=== PATIENT | male | born 1950 | race Caucasian/White ===

== ENCOUNTER 2020-05-22 17:09 | Emergency (ER) | payer MEDICARE, BC ==
--- NOTE | 2020-05-22 18:57 | EDM.PDOC ---
ED HPI GENERAL MEDICAL PROBLEM - General Chief Complaint: Respiratory Problem Stated Complaint: ANGELA SERRATO HAS BEEN EXPOSED Time Seen by Provider: 05/22/20 17:31 Source of Information: Reports: Patient History Limitations: Reports: No Limitations - History of Present Illness INITIAL COMMENTS - FREE TEXT/NARRATIVE: The patient presents with a slight cough and shortness of breath. The patient had a friend over on Monday and the next day his friend had symptoms and tested positive on Monday. Yesterday the patient developed a headache, slight cough, and shortness of breath. He has no other symptoms such as fever, chills, congestion, runny nose, abdominal pain, chest pain, nausea, vomiting or diarrhea. he has a history of Parkinson's disease. He has no history of asthma or COPD. He does not smoke. His is on oxygen at home and she has lung issues. Onset: Gradual Duration: Day(s): Severity: Mild Improves with: Reports: None Worsens with: Reports: None Associated Symptoms: Reports: Cough, Headaches, Shortness of Breath. Denies: Confusion, Chest Pain, Fever/Chills, Nausea/Vomiting Back Pain Score (Numeric/FACES): 2 - Related Data Allergies Allergy/AdvReac Type Severity Reaction Status Date / Time No Known Allergies Allergy Verified 05/22/20 17:33 Home Meds: Home Meds Carbidopa/Levodopa [Carbidopa-Levodopa 10-100] 1 tab PO ASDIRECTED 05/22/20 [History] Levothyroxine [Synthroid] 0 mcg PO DAILY 05/22/20 [History] Past Medical History Musculoskeletal History: Reports: Other (See Below) Other Musculoskeletal History: roator cuff right arm surgery Neurological History: Reports: Parkinson's Endocrine/Metabolic History: Reports: Hypothyroidism Social & Family History - Tobacco Use Tobacco Use Status *Q: Never Tobacco User - Caffeine Use Caffeine Use: Reports: Soda - Recreational Drug Use Recreational Drug Use: No ED ROS GENERAL - Review of Systems Review Of Systems: See Below Constitutional: Reports: No Symptoms HEENT: Reports: No Symptoms Respiratory: Reports: Shortness of Breath, Cough Cardiovascular: Reports: No Symptoms Endocrine: Reports: No Symptoms GI/Abdominal: Reports: No Symptoms : Reports: No Symptoms Musculoskeletal: Reports: No Symptoms ED EXAM, GENERAL - Physical Exam Exam: See Below Exam Limited By: No Limitations General Appearance: Alert, No Apparent Distress Ears: Normal External Exam Nose: Normal Inspection Head: Atraumatic, Normocephalic Neck: Normal Inspection Respiratory/Chest: No Respiratory Distress, Lungs Clear, Normal Breath Sounds Cardiovascular: Regular Rate, Rhythm, No Edema, No Murmur GI/Abdominal: Soft, Non-Tender, No Organomegaly, No Mass Back Exam: Normal Inspection Extremities: Normal Inspection Neurological: Alert, Oriented, No Motor/Sensory Deficits Course - Vital Signs Last Recorded V/S: Last Vital Signs Temp 99.8 F 05/22/20 17:39 Pulse 77 05/22/20 17:39 Resp 20 05/22/20 17:39 BP 147/85 H 05/22/20 17:39 Pulse Ox 95 05/22/20 17:39 - Orders/Labs/Meds Orders: Active Orders 24 hr Category Date Time Status CXR [Chest 1V Frontal] [CR] Stat Exams 05/22/20 18:04 Taken Labs: Laboratory Tests 05/22/20 Range/Units 18:16 SARS-CoV-2 RNA (RY) Positive H (NEGATIVE) - Re-Assessments/Exams Free Text/Narrative Re-Assessment/Exam: 05/22/20 19:00 I ordered a CXR and COVID 19 test. His CXR looks good. I am awaiting his COVID 19 test. 05/22/20 19:24 He is COVID positive. I will discharge him home. Departure - Departure Time of Disposition: 19:25 Disposition: Home, Self-Care 01 Condition: Good Clinical Impression: COVID-19 - Discharge Information *PRESCRIPTION DRUG MONITORING PROGRAM REVIEWED*: Not Applicable *COPY OF PRESCRIPTION DRUG MONITORING REPORT IN PATIENT ANISA: Not Applicable Referrals: PCP,Not In Area [Primary Care Provider] - Forms: ED Department Discharge Additional Instructions: Quarantine yourself for 14 days. Try to grain picker a pulse oximeter to check your blood oxygen level. You can get one from the pharmacy or [facility]. If your oxygen level is below 90 consistently please return. Please return if you feel worse. You should have your checked on Monday. Sepsis Event Note (ED) - Evaluation Sepsis Screening Result: No Definite Risk - Focused Exam Vital Signs: Vital Signs Temp Pulse Resp BP Pulse Ox 05/22/20 17:39 99.8 F 77 20 147/85 H 95 - My Orders Last 24 Hours: My Active Orders 05/22/20 18:04 CXR [Chest 1V Frontal] [CR] Stat - Assessment/Plan Last 24 Hours: My Active Orders 05/22/20 18:04 CXR [Chest 1V Frontal] [CR] Stat
--- NOTE | 2020-05-25 09:18 | CR ---
PROCEDURE INFORMATION: Exam: XR Chest, 1 View Exam date and time: 05/22/2020 6:02 PM Age: 69 years old Clinical indication: Cough and shortness of breath and other: Covid 19 exposure TECHNIQUE: Imaging protocol: XR of the chest Views: 1 view. COMPARISON: No relevant prior studies available. FINDINGS: Lungs: Aeration and architecture is normal Pleural space: The pleural surfaces are normal. There are no signs of effusion or pneumothorax. Heart/Mediastinum: The heart and mediastinum appear normal. Prominent pericardial fat projects lateral to the cardiac apex. Bones/joints: The patient is post lower cervical fusion. IMPRESSION: Unremarkable lungs, no sign of pneumonia. Thank you for allowing us to participate in the care of your patient. Dictated and Authenticated by: Casimiro Torre MD 05/22/2020 7:40 PM Central Time ([place] & [place]) [facility]ENTER[facility]ia
== END 2020-05-22 19:38 | disposition home or self-care (01) ==
LOC: JD.ED 17:09
DX: U07.1 COVID-19 (principal); E03.9 Hypothyroidism, unspecified; Z79.899 Other long term (current) drug therapy
CPT/HCPCS: 71045; 99285; U0002; 99282

== ENCOUNTER 2023-02-28 05:46 | Emergency (ER) | payer MEDICARE, BC | END 2023-02-28 07:40 | disposition home or self-care (01) | LOC: JD.ED 05:46 | DX: K59.00 Constipation, unspecified (principal); E03.9 Hypothyroidism, unspecified; Z79.899 Other long term (current) drug therapy; Z86.16 Personal history of COVID-19 | CPT/HCPCS: 74018; 74018-26; 99282; 99283 ==

== ENCOUNTER 2024-11-28 22:58 | Emergency (ER) | payer MEDICARE, BC | END 2024-11-29 02:05 | disposition home or self-care (01) | LOC: JD.ED 22:58 | DX: M25.512 Pain in left shoulder (principal); E03.9 Hypothyroidism, unspecified; Z86.16 Personal history of COVID-19; Z79.890 Hormone replacement therapy; Z79.899 Other long term (current) drug therapy; W19.XXXA Unspecified fall, initial encounter | CPT/HCPCS: 73030-26-LT; 73030-LT; 99283 ==